=== PATIENT | female | born 1960 | race African-American/Black ===

== ENCOUNTER 2017-06-03 10:08 | Day surgery (SDC) | payer OTHER ==
[2017-06-03] MEDS ORDERED: Sodium Chloride 0.9% 20 ML ONE (10:34)
[2017-06-03] MEDS ORDERED: ADMIXTURE FEE IVPB SCH (10:45)
[2017-06-03] MEDS ORDERED: SODIUM CHLORIDE IVPB SCH (10:45)
[2017-06-03] MEDS ORDERED: TRASTUZUMAB IVPB SCH (10:45)
[2017-06-03 10:46] VITALS: BP 119/66; TEMP 97.3
[2017-06-03] MEDS ORDERED: FLU VACC QS2017-18 36 mo. & older 0.5 ML SYRINGE IM ONE (11:00)
== END 2017-06-03 11:57 | disposition home or self-care (01) ==
LOC: ONC/OP 10:08
PROVIDERS: ATTEND Internal Medicine Hematology & Oncology
DX: Z51.11 Encounter for antineoplastic chemotherapy (principal); C50.412 Malignant neoplasm of upper-outer quadrant of left female breast; E11.9 Type 2 diabetes mellitus without complications; Z17.1 Estrogen receptor negative status [ER-]
CPT/HCPCS: 96413; A4216; J1642; J7050; J9355

== ENCOUNTER 2017-06-24 11:43 | Day surgery (SDC) | payer OTHER ==
[2017-06-24 12:13] VITALS: BP 123/67; TEMP 97.3
[2017-06-24] MEDS ORDERED: Sodium Chloride 0.9% 20 ML ONE (12:27)
[2017-06-24] MEDS ORDERED: SODIUM CHLORIDE IVPB SCH (13:00)
[2017-06-24] MEDS ORDERED: TRASTUZUMAB IVPB SCH (13:00)
[2017-06-24] MEDS ORDERED: ADMIXTURE FEE IVPB SCH (13:00)
== END 2017-06-24 14:44 | disposition home or self-care (01) ==
LOC: ONC/OP 11:43
PROVIDERS: ATTEND Internal Medicine Hematology & Oncology
DX: Z51.11 Encounter for antineoplastic chemotherapy (principal); C50.412 Malignant neoplasm of upper-outer quadrant of left female breast; E11.9 Type 2 diabetes mellitus without complications; Z17.1 Estrogen receptor negative status [ER-]
CPT/HCPCS: 96413; A4216; J1642; J7050; J9355

== ENCOUNTER 2017-07-15 12:30 | Day surgery (SDC) | payer OTHER ==
[2017-07-15 13:08] VITALS: BP 129/64; TEMP 97.7
[2017-07-15] MEDS ORDERED: SODIUM CHLORIDE 0.9% IVPB SCH ×4 (13:15)
[2017-07-15] MEDS ORDERED: TRASTUZUMAB IVPB SCH ×4 (13:15)
== END 2017-07-15 15:10 | disposition home or self-care (01) ==
LOC: ONC/OP 12:30
PROVIDERS: ATTEND Internal Medicine Hematology & Oncology
DX: Z51.11 Encounter for antineoplastic chemotherapy (principal); C50.412 Malignant neoplasm of upper-outer quadrant of left female breast; E11.9 Type 2 diabetes mellitus without complications; Z17.1 Estrogen receptor negative status [ER-]
CPT/HCPCS: 96413; J7050; J9355

== ENCOUNTER 2017-07-31 11:59 | Outpatient (CLI) | payer OTHER ==
[~2017-07-31 11:59] MED LIST: Iopamidol 370 76% 100 ML VIAL ONE
--- NOTE | 2017-07-31 15:44 | CT ---
CHEST CT SCAN ABDOMEN AND PELVIC CT SCAN 07/31/17 HISTORY: 57-year-old female with breast cancer, malignant neoplasm upper outer quadrant left female breast. COMPARISON: 02/10/17. FINDINGS: Some very mild stable linear stranding in the lung bases and lingula and right middle lobe. No eviden ce for pulmonary metastases. Surgical clips in the left axilla with stable appearance from prior stud y. Stable right axillary lymph nodes. No mediastinal mass or adenopathy. Small hiatal hernia. The liver, gallbladder, pancreas, spleen, adrenal glands are unremarkable. No renal calculi or acute obstruction. Normal appearing appendix. No evidence for adenopathy within the abdomen or pelvis. No bone metastases. IMPRESSION: Stable postoperative changes in the left axilla. Stable right axillary lymph nodes. Small hiatal andrei ia. No evidence for metastasis in the chest, abdomen or pelvis. No significant change from prior stud y. POS: [facility]
== END 2017-07-31 12:00 | disposition home or self-care (01) ==
LOC: CT 11:59
PROVIDERS: ATTEND Internal Medicine Hematology & Oncology
DX: Z51.11 Encounter for antineoplastic chemotherapy (principal); C50.412 Malignant neoplasm of upper-outer quadrant of left female breast; K44.9 Diaphragmatic hernia without obstruction or gangrene; I51.7 Cardiomegaly; I34.0 Nonrheumatic mitral (valve) insufficiency; I37.1 Nonrheumatic pulmonary valve insufficiency; Z79.899 Other long term (current) drug therapy; Z98.890 Other specified postprocedural states
CPT/HCPCS: 71260; 74177; 93306

== ENCOUNTER 2017-08-05 10:12 | Day surgery (SDC) | payer OTHER ==
[2017-08-05] MEDS ORDERED: ADMIXTURE FEE IVPB SCH ×7 (10:30→11:15)
[2017-08-05] MEDS ORDERED: SODIUM CHLORIDE IVPB SCH ×7 (10:30→11:15)
[2017-08-05] MEDS ORDERED: TRASTUZUMAB IVPB SCH ×7 (10:30→11:15)
[2017-08-05] MEDS ORDERED: Sodium Chloride 0.9% 20 ML ONE (10:33)
== END 2017-08-05 13:03 | disposition home or self-care (01) ==
LOC: ONC/OP 10:12
PROVIDERS: ATTEND Internal Medicine Hematology & Oncology
DX: Z51.11 Encounter for antineoplastic chemotherapy (principal); C50.412 Malignant neoplasm of upper-outer quadrant of left female breast; E11.9 Type 2 diabetes mellitus without complications; I34.0 Nonrheumatic mitral (valve) insufficiency; Z17.1 Estrogen receptor negative status [ER-]; Z90.13 Acquired absence of bilateral breasts and nipples; Z90.710 Acquired absence of both cervix and uterus
CPT/HCPCS: 96413; A4216; J1642; J5355; J7050; J9355

== ENCOUNTER 2017-09-15 10:22 | Day surgery (SDC) | payer OTHER ==
[2017-09-15] MEDS ORDERED: Sodium Chloride 0.9% 20 ML ONE (10:35)
[2017-09-15] MEDS ORDERED: ADMIXTURE FEE IVPB SCH (11:30)
[2017-09-15] MEDS ORDERED: SODIUM CHLORIDE IVPB SCH (11:30)
[2017-09-15] MEDS ORDERED: TRASTUZUMAB IVPB SCH (11:30)
[2017-09-15 14:24] VITALS: BP 113/69; TEMP 97.6
== END 2017-09-15 16:23 | disposition home or self-care (01) ==
LOC: ONC/OP 10:22
PROVIDERS: ATTEND Internal Medicine Hematology & Oncology
DX: Z51.11 Encounter for antineoplastic chemotherapy (principal); C50.412 Malignant neoplasm of upper-outer quadrant of left female breast; E11.9 Type 2 diabetes mellitus without complications; Z17.1 Estrogen receptor negative status [ER-]
CPT/HCPCS: 36415; 80053; 96413; A4216; J1642; J7050; J9355

== ENCOUNTER 2017-10-07 10:59 | Day surgery (SDC) | payer OTHER ==
[2017-10-07] MEDS ORDERED: Sodium Chloride 0.9% 30 ML ONE (11:07)
[2017-10-07] MEDS ORDERED: TRASTUZUMAB IVPB SCH (11:15)
[2017-10-07] MEDS ORDERED: SODIUM CHLORIDE IVPB SCH (11:15)
[2017-10-07] MEDS ORDERED: ADMIXTURE FEE IVPB SCH (11:15)
== END 2017-10-07 13:42 | disposition home or self-care (01) ==
LOC: ONC/OP 10:59
PROVIDERS: ATTEND Internal Medicine Hematology & Oncology
DX: Z51.11 Encounter for antineoplastic chemotherapy (principal); C50.412 Malignant neoplasm of upper-outer quadrant of left female breast; E11.9 Type 2 diabetes mellitus without complications; Z17.1 Estrogen receptor negative status [ER-]
CPT/HCPCS: 96413; A4216; J1642; J7050; J9355

== ENCOUNTER 2017-10-28 10:35 | Day surgery (SDC) | payer OTHER ==
[2017-10-28] MEDS ORDERED: SODIUM CHLORIDE 0.9% IVPB SCH (11:00)
[2017-10-28] MEDS ORDERED: TRASTUZUMAB IVPB SCH (11:00)
[2017-10-28] MEDS ORDERED: Sodium Chloride 0.9% 20 ML ONE (11:13)
[2017-10-28 12:00] VITALS: BP 115/63; TEMP 97.7
== END 2017-10-28 16:52 | disposition home or self-care (01) ==
LOC: ONC/OP 10:35
PROVIDERS: ATTEND Internal Medicine Hematology & Oncology
DX: Z51.11 Encounter for antineoplastic chemotherapy (principal); C50.412 Malignant neoplasm of upper-outer quadrant of left female breast; E11.9 Type 2 diabetes mellitus without complications; Z17.1 Estrogen receptor negative status [ER-]
CPT/HCPCS: 96413; A4216; J1642; J7050; J9355

== ENCOUNTER 2017-11-24 09:34 | Day surgery (SDC) | payer OTHER ==
[2017-11-24] MEDS ORDERED: Sodium Chloride 0.9% 20 ML ONE (09:55)
[2017-11-24] MEDS ORDERED: SODIUM CHLORIDE 0.9% IVPB SCH ×4 (10:00)
[2017-11-24] MEDS ORDERED: TRASTUZUMAB IVPB SCH ×4 (10:00)
[2017-11-24 11:19] VITALS: BP 147/82
== END 2017-11-24 11:18 | disposition home or self-care (01) ==
LOC: ONC/OP 09:34
PROVIDERS: ATTEND Internal Medicine Hematology & Oncology
DX: Z51.11 Encounter for antineoplastic chemotherapy (principal); C50.412 Malignant neoplasm of upper-outer quadrant of left female breast; E11.9 Type 2 diabetes mellitus without complications; Z17.1 Estrogen receptor negative status [ER-]
CPT/HCPCS: 96413; A4216; J1642; J7050; J9355

== ENCOUNTER 2018-02-20 08:12 | Outpatient (CLI) | payer OTHER ==
[2018-02-20] MEDS ORDERED: ISOVUE-370 76%-LOCM 1 ML ONE (09:54)
== END 2018-02-20 08:13 | disposition home or self-care (01) ==
LOC: BICCT 08:12
PROVIDERS: ATTEND Internal Medicine Hematology & Oncology
DX: C50.412 Malignant neoplasm of upper-outer quadrant of left female breast (principal)
CPT/HCPCS: 71260; 74177

== ENCOUNTER 2018-09-04 07:23 | Outpatient (CLI) | payer OTHER ==
[2018-09-04 08:04] LABS: #Lymphocytes 1.8 thou/uL (1.20-3.40); #Monocytes 0.6 thou/uL (0.11-0.59); %Eosinophils 0.8 % (0.0-10.0); %Lymphocytes 40.5 % (21.0-51.0); %Monocytes 12.9 % (0.0-10.0); %Neutrophils 44.8 % (42.0-75.0); Hemoglobin 13.3 g/dL (12.0-16.0); Mean Corpuscular HGB CONC 32.6 g/dL (32.0-36.0); Mean Corpuscular Hemoglobin 27.4 pg (27.0-31.0); Mean Corpuscular Volume 84.1 fL (78.0-98.0); Platelet Count 166 thou/uL (130-400); Red Blood Cell (RBC) Count 4.85 mill/uL (4.20-5.40); White Blood Cell (WBC) Count 4.4 thou/uL (4.8-10.8)
[2018-09-04 08:22] LABS: ALT (SGPT) 12 U/L (8-55); AST (SGOT) 9 U/L (5-34); Albumin 4.1 g/dL (3.5-5.0); Alkaline Phosphatase 167 U/L (40-150); Anion Gap 15 mmol/L (10-20); BUN (Urea Nitrogen) 11 mg/dL (9.8-20.1); Bilirubin, Total 0.7 mg/dL (0.2-1.2); Calc. Creatinine Clearance 0 mL/min (70-130); Calcium 9.9 mg/dL (7.8-10.44); Carbon Dioxide 27 mmol/L (22-29); Chloride 99 mmol/L (98-107); Estimated GFR-MDRD 81; Globulin 3.6 g/dL (2.4-3.5); Glucose 333 mg/dL (70-105); Potassium 4.2 mmol/L (3.5-5.1); Protein, Total 7.7 g/dL (6.0-8.3); Sodium 137 mmol/L (136-145)
--- NOTE | 2018-09-04 10:54 | CT ---
CT ABDOMEN AND PELVIS WITH IV CONTRAST: Date: 09-04-18 History: Breast cancer. Post chemotherapy. Patient has bloating symptoms and epigastric pain. Comparison: CT abdomen, 02-20-18; CT abdomen and pelvis, 07-31-17. FINDINGS: There is partial visualization of post-surgical changes related to bilateral mastectomies. The lung b ases are clear, and no discrete pulmonary nodule or mass or pleural effusion is visualized. Tip of a Mediport catheter in the SVC is present. The liver, spleen, pancreas, bilateral adrenal glands, kidneys, abdominal aorta, urinary bladder and opacified bowel demonstrate a normal CT appearance. There is evidence of prior hysterectomy. No free fluid, fluid collection or lymphadenopathy is seen in the abdomen or pelvis. No lytic or sclerotic osseous lesions are identified. IMPRESSION: 1. No CT findings to suggest metastatic disease. 2. Very small hiatal hernia. 3. Hysterectomy. POS: [facility]
[2018-09-04] MEDS ORDERED: Iopamidol 370 76% 100 ML VIAL ONE (11:21)
== END 2018-09-04 07:24 | disposition home or self-care (01) ==
LOC: CT 07:23
PROVIDERS: ATTEND Internal Medicine Hematology & Oncology
DX: C50.412 Malignant neoplasm of upper-outer quadrant of left female breast (principal); K44.9 Diaphragmatic hernia without obstruction or gangrene; Z90.710 Acquired absence of both cervix and uterus
CPT/HCPCS: 36415; 74177; 80053; 82306; 85025

== ENCOUNTER 2022-08-26 16:58 | Emergency (ER) | payer OTHER ==
[2022-08-26 17:34] LABS: #Lymphocytes 1.4 thou/uL (1.20-3.40); #Monocytes 0.3 thou/uL (0.11-0.59); #Neutrophils 1.4 thou/uL (1.40-6.50); %Basophils 0.9 % (0.0-1.0); %Eosinophils 0.2 % (0.0-10.0); %Lymphocytes 44.7 % (21.0-51.0); %Monocytes 8.5 % (0.0-10.0); %Neutrophils 45.7 % (42.0-75.0); Hemoglobin 12.8 g/dL (12.0-16.0); Mean Corpuscular HGB CONC 34.1 g/dL (32.0-36.0); Mean Corpuscular Hemoglobin 29.3 pg (27.0-31.0); Mean Corpuscular Volume 85.8 fl (78.0-98.0); Mean Platelet Volume 9.3 fL (7.4-10.4); Platelet Count 127 10x3/uL (130-400); RBC Distribution Width 12.3 % (11.5-14.5); Red Blood Cell (RBC) Count 4.37 mill/uL (4.20-5.40); White Blood Cell (WBC) Count 3.1 10x3/uL (4.8-10.8)
[2022-08-26 17:55] LABS: ALT (SGPT) 12 U/L (8-55); AST (SGOT) 13 U/L (5-34); Albumin 3.8 g/dL (3.4-4.8); Alkaline Phosphatase 118 U/L (40-110); Anion Gap 12 mmol/L (10-20); BUN (Urea Nitrogen) 4 mg/dL (9.8-20.1); Bilirubin, Total 0.9 mg/dL (0.2-1.2); Calc. Creatinine Clearance 0 mL/min (70-130); Calcium 9.1 mg/dL (7.8-10.44); Carbon Dioxide 26 mmol/L (23-31); Chloride 103 mmol/L (98-107); Estimated GFR 86; Globulin 3.1 g/dL (2.4-3.5); Glucose 244 mg/dL (80-115); Lipase 10 U/L (8-78); Potassium 3.9 mmol/L (3.5-5.1); Protein, Total 6.9 g/dL (5.8-8.1); Sodium 137 mmol/L (136-145)
== END 2022-08-26 18:42 | disposition home or self-care (01) ==
LOC: ERS 16:58
DX: R06.02 Shortness of breath (principal)
CPT/HCPCS: 36415; 71045; 80053; 83690; 84484; 85025; 93005